=== PATIENT | female | born 1990 | race Caucasian/White ===

== ENCOUNTER 2016-10-04 09:51 | Emergency (ER) | payer OTHER ==
[~2016-10-04] VITALS: Ht 180.3 cm; Wt 67.1 kg
[~2016-10-04 09:51] MED LIST: ATENOLOL25 MG PO; Antivert PO; BACTRIM,SEPT1 TABLET PO; CIPRO500 MG PO; DIAZEPAM10 MG PO; FLOMAX0.4 MG PO; FOLIC ACID1 MG PO; Feosol PO; Folic Acid PO; IMITREX100 MG PO; IRON 100 PLUS1 EACH PO; KEFLEX500 MG PO; MACROBID100 MG PO; METFORMIN HCL500 MG PO; MOTRIN600 MG PO; Macrodantin PO; NAPROSYN500 MG PO; NEURONTIN400 MG PO; NEXIUM20 MG PO; NEXIUM40 MG PO; PERCOCET 5/31 TABLET PO; PREDNISONE10 MG PO; PYRIDIUM200 MG PO; Reglan PO; STOOL SOFTENER250 MG PO; TYLENOL EXTRA500 MG PO; TYLENOL REGULA325 MG PO; TYLENOL WITH C1 EACH PO; VALIUM10 MG PO; Valium PO; ZOFRAN ODT4 MG PO; ZOFRAN ODT8 MG PO; Zofran PO; oxyCODONE PO
[2016-10-04 11:03] LABS: ADD MIUA? YES; BILIRUBIN NEGATIVE; BLOOD LARGE; COLOR YELLOW ((YELLOW)); GLUCOSE (STRIP) NEGATIVE; KETONES NEGATIVE; LEUKOCYTES SMALL; NITRITE NEGATIVE; PROTEIN (STRIP) 30; SPECIFIC GRAVITY 1.009 (1.000-1.030); UROBILINOGEN 0.2 MG/DL (0.2-1.0)
[2016-10-04] MEDS ORDERED: ZOFRAN ODT4 MG PO (11:19)
[2016-10-04] MEDS ORDERED: MOTRIN800 MG PO (11:19)
[2016-10-04] MEDS ORDERED: FLOMAX0.4 MG PO (11:19)
[2016-10-04 11:36] LABS: BACTERIA 1+ /HPF; EPITHELIAL CELLS 4+ /HPF; MUCUS NONE SEEN /LPF; RED BLOOD CELLS TNTC /HPF (0-5); UCUL ADDED? NO; WHITE BLOOD CELLS CLUMP FEW /HPF (0-5)
[2016-10-04 11:44] LABS: HEMATOCRIT 39.7 % (36.0-46.0); MCV 85.9 FL (83-99); PLATELET COUNT 412 K/uL (156-360); RBC DIS.WIDTH-SD 39.7 % (39-53); RED BLOOD COUNT 4.62 M/uL (3.80-5.20); WHITE BLOOD COUNT 10.5 K/uL (4.1-10.2)
[2016-10-04 12:03] LABS: CHLORIDE 111 mEq/L (99-109); POTASSIUM 4.2 mEq/L (3.7-5.4); SODIUM 140 mEq/L (136-147)
[2016-10-04 12:05] LABS: GLUCOSE 98 mg/dL (70-99)
[2016-10-04 12:07] LABS: ANION GAP 8 MEQ/L (2-14)
[2016-10-04 12:09] LABS: ALKALINE PHOSPHATASE 50 IU/L (3-129); GFR ESTIMATE (CALCULATED) > 59 mL/min/
[2016-10-04 12:10] LABS: UREA NITROGEN (BUN) 8 mg/dL (9-23)
[2016-10-04 12:21] LABS: QUANTITATIVE HCG 477.9 MIU/ML
[2016-10-04] MEDS ORDERED: MACROBID100 MG PO (12:40)
[2016-10-04 12:53] VITALS: BP 126/69
== END 2016-10-04 12:54 | disposition home or self-care (01) ==
LOC: EME 09:51
PROVIDERS: Nurse Practitioner Family
DX: N20.0 Calculus of kidney (principal); R31.9 Hematuria, unspecified; K21.9 Gastro-esophageal reflux disease without esophagitis; Z87.442 Personal history of urinary calculi; Z87.891 Personal history of nicotine dependence
CPT/HCPCS: 74000; 80053; 81003; 84702; 85027; 99281; 99284; J2405; J3010; J7030